=== PATIENT | male | born 1990 | race Caucasian/White ===

== ENCOUNTER 2019-08-30 13:45 | Emergency (ER) | payer OTHER ==
[2019-08-30] MEDS ORDERED: Lidocaine 1% MPF ** 5 ML VIAL INJ ONE (14:21)
--- NOTE | 2019-08-30 14:32 | ED ---
Head Injury - HPI Summary HPI Summary: Pt is a 29 y/o M presenting to the ED with a chief complaint of a head injury. He was in the ceiling at [facility] trying to get somewhere he isnt allowed, when he fell through the ceiling, onto a metal filing cabinet, and onto the ground, causing a laceration on the back of his head. He currently reports a headache, laceration, and back pain. He denies LOC, vomiting, change in vision, or weakness in his arms/legs. Last tetanus shot in 2018. Pt does not want X-Rays of his back. - History Of Current Complaint Chief Complaint: EDLacSutureRecheck Stated Complaint: LAC ON HEAD PER PT Time Seen by Provider: 08/30/19 13:56 Hx Obtained From: Patient Mechanism Of Injury: Fall From Height Of: - approx 10 ft Onset/Duration: Started Hours Ago, Still Present Onset of Pain: Immediate Severity Currently: Moderate Severity Initially: Moderate Pain Intensity: 5 Pain Scale Used: 0-10 Numeric Location of Head Injury: Occipital Location: Diffuse Associated Signs And Symptoms: Headache - Allergies/Home Medications Allergies/Adverse Reactions: Allergies Allergy/AdvReac Type Severity Reaction Status Date / Time No Known Allergies Allergy Verified 08/30/19 13:51 Home Medications: Home Medications NK [No Home Medications Reported] 08/30/19 [History Confirmed 08/30/19] PMH/Surg Hx/FS Hx/Imm Hx Previously Healthy: Yes Endocrine/Hematology History: Denies: Hx Anticoagulant Therapy Cardiovascular History: Denies: Hx Hypertension Infectious Disease History: No Infectious Disease History: Denies: Traveled Outside the [place] in Last 30 Days - Family History Known Family History: Negative: Cardiac Disease - Social History Alcohol Use: None Hx Substance Use: No Substance Use Type: Reports: None Hx Tobacco Use: Yes Smoking Status (MU): Current Every Day Smoker Review of Systems Eyes: Negative Negative: Vomiting Positive: Myalgia - back pain Positive: Other - laceration back of head Positive: Headache. Negative: Weakness, Syncope All Other Systems Reviewed And Are Negative: Yes Physical Exam - Summary Physical Exam Summary: Constitutional: Well-developed, Well-nourished, Alert. (-) Distressed Skin: Warm, Dry HENT: 6cm linear laceration over the occiput. Eyes: Conjunctiva normal Neck: Musculoskeletal ROM normal neck. (-) JVD, (-) Stridor, (-) Tracheal deviation Cardio: Rhythm regular, rate normal, Heart sounds normal; Intact distal pulses; Radial pulses are 2+ and symmetric. (-) Murmur Pulmonary/Chest wall: Effort normal. (-) Respiratory distress, (-) Wheezes, (-) Rales Abd: Soft, (-) tenderness, (-) Distension, (-) Guarding, (-) Rebound Musculoskeletal: (-) Edema. Mild lower back tenderness Lymph: (-) Cervical adenopathy Neuro: Alert, Oriented x3 Psych: Mood and affect Normal Triage Information Reviewed: Yes Vital Signs On Initial Exam: Initial Vitals Temp Pulse Resp BP Pulse Ox 98.9 F 80 16 112/74 99 08/30/19 13:47 08/30/19 13:47 08/30/19 13:47 08/30/19 13:47 08/30/19 13:47 Vital Signs Reviewed: Yes Procedures - Sedation Patient Received Moderate/Deep Sedation with Procedure: No - Laceration/Wound Repair 1 Location: head Description: Linear Anesthesia: Local, 1.0%, Lido - 15ml Length, Depth and Shape: 6cm Laceration/Wound Explored: clean Closure: Elliott #__ - 12 Debridement: minimal Layer Closure?: Yes Sterile Dressing Applied?: Yes Diagnostics - Vital Signs Vital Signs Temp Pulse Resp BP Pulse Ox 08/30/19 13:47 98.9 F 80 16 112/74 99 - Laboratory Lab Statement: Any lab studies that have been ordered have been reviewed, and results considered in the medical decision making process. Head Injury Course/Dx Course Of Treatment: Patient is here with a laceration to his occiput. Patient was in the ceiling trying to escape when he felt the ceiling and hit his head. Patient had no loss of consciousness has been admitted twice since then. Patient's had no vomiting, change in vision, focal weakness. Patient has been acting appropriate per guards. Patient is up-to-date on his tetanus. Patient had washout of his wound and closure with elliott. Patient also had lower back pain but do not think he fractured his back. Patient was offered x- rays but declined. - Diagnoses Provider Diagnoses: Laceration of head Discharge ED - Sign-Out/Discharge Documenting (check all that apply): Patient Departure - Discharge Plan Condition: Stable Disposition: HOME Patient Education Materials: [facility] (ED) Referrals: Russ OCHOA,[place] [Primary Care Provider] - Additional Instructions: You need to have your elliott removed in 10-14 days, which can be done here. You need to be monitored for the next 24 hours to watch for signs of brain injury. These include repetitive vomiting, acting abnormally, slurred speech, one-sided weakness, or seizure. If any of these occur, come back to the emergency department immediately. - Billing Disposition and Condition Condition: STABLE Disposition: Home - Attestation Statements Document Initiated by Miri: Yes Documenting Scribe: Vanessa Dorsey Provider For Whom Miri is Documenting (Include Credential): Yony Bishop MD. Scribe Attestation: Vanessa Marquez, guichoed for Yony Bishop MD. on 08/30/19 at 1731. Scribe Documentation Reviewed: Yes Provider Attestation: The documentation as recorded by the cortneyibeVanessa accurately reflects the service I personally performed and the decisions made by , Yony Bishop MD. Status of Scribe Document: Viewed
[2019-08-30 15:01] VITALS: BP 113/57
== END 2019-08-30 15:00 | disposition home or self-care (01) ==
LOC: ED 13:45
DX: S01.91XA Laceration without foreign body of unspecified part of head, initial encounter (principal); W13.8XXA Fall from, out of or through other building or structure, initial encounter; Y92.148 Other place in prison as the place of occurrence of the external cause; F17.200 Nicotine dependence, unspecified, uncomplicated
CPT/HCPCS: 12002; 99282